=== PATIENT | female | born 1995 | race Caucasian/White ===

== ENCOUNTER 2020-06-01 12:24 | Observation (INO) | payer MEDICAID ==
[~2020-06-01] VITALS: Ht 152.4 cm; Wt 68.0 kg
[2020-06-01] MEDS ORDERED: PREN-55 PO (12:51)
== END 2020-06-01 14:35 | disposition home or self-care (01) ==
LOC: 8 EST LDRP 12:24
PROVIDERS: ADMIT Obstetrics & Gynecology; ATTEND Obstetrics & Gynecology
DX: O62.9 Abnormality of forces of labor, unspecified (principal); Z3A.39 39 weeks gestation of pregnancy
CPT/HCPCS: 99281; G0378

== ENCOUNTER 2020-06-01 20:32 | Inpatient (IN) | payer MEDICAID ==
[~2020-06-01] VITALS: Ht 152.4 cm; Wt 65.8 kg
[~2020-06-01 20:32] MED LIST: PREN-55 PO
[2020-06-01] MEDS ORDERED: DEXT 5%/LR + PITOCIN 20UNITS/L 1,000 ML IV SCH ×2 (21:25→23:01)
[2020-06-01] MEDS ORDERED: LACTATED RINGERS 1,000 ML IV SCH (21:25)
[2020-06-01] MEDS ORDERED: CARBOPROST TROMETHAMINE 250 MCG/ML AMPUL IM PRN (21:30)
[2020-06-01] MEDS ORDERED: LIDOCAINE HCL 1% 20ML VIAL (Pyxis) INJ INFIL SCH (21:30)
[2020-06-01] MEDS ORDERED: METHYLERGONOVINE MALEATE 0.2 MG/ML IM PRN (21:30)
[2020-06-01] MEDS ORDERED: NALOXONE HCL 0.4 MG/ML 1ML VIAL IM PRN (21:30)
[2020-06-01] MEDS ORDERED: BUTORPHANOL TARTRATE 2 MG/ML VIAL IV PRN (21:30)
[2020-06-01 21:45] LABS: BASOPHILS % 0.2 % (0.0-2.0); HEMATOCRIT. 41.1 % (36.0-48.0); LYMPHOCYTES % 9.6 % (20.0-50.0); MEAN CORPUSCULAR HEMOGLOBIN 32.1 pg (28.0-32.0); MEAN CORPUSCULAR VOLUME 93.9 fL (81.0-99.0); MEAN PLATELET VOLUME 7.4 fl (7.4-10.4); MONOCYTES % 2.8 % (2.0-8.0); NEUTROPHILS % 87.4 % (40.0-76.0); PLATELET 274 x1000/uL (130-400); RED BLOOD CELL COUNT 4.37 mill/uL (4.2-5.4); RED CELL DISTRIBUTION WIDTH 13.5 % (11.6-14.6)
[2020-06-01 21:45] LABS: CLARITY URINE CLEAR (CLEAR); COLOR URINE YELLOW (YELLOW); KETONES URINE 2+ (NEGATIVE); LEUKOCYTE ESTERASE URINE TRACE (NEGATIVE); NITRITE URINE NEGATIVE (NEGATIVE); OCCULT BLOOD URINE 1+ (NEGATIVE); PH URINE 5.5 (4.5-8.0); PROTEIN URINE NEGATIVE (NEGATIVE); SPECIFIC GRAVITY URINE 1.012 (1.005-1.030); UROBILINOGEN URINE 0.2 E.U./dL (0.2-1.0)
[2020-06-01 21:53] LABS: INR 0.9; PARTIAL THROMBOPLASTIN TIME 26.9 sec (23.4-31.0); PROTHROMBIN TIME 9.7 sec (9.6-11.0)
[2020-06-01 21:59] LABS: *BARBITURATES SCREEN URINE NEGATIVE (NEGATIVE); *BENZODIAZEPINES SCREEN URINE NEGATIVE (NEGATIVE); *COCAINE SCREEN URINE NEGATIVE (NEGATIVE); METHADONE URINE SCREEN NEGATIVE (NEGATIVE)
[2020-06-01 22:00] LABS: *AMPHETAMINES SCREEN URINE NEGATIVE (NEGATIVE); CANNABINOID URINE SCREEN NEGATIVE (NEGATIVE); PHENCYCLIDINE URINE SCREEN NEGATIVE (NEGATIVE)
[2020-06-01] MEDS ORDERED: PENICILLIN G POTASSIUM 5 MMU in DEXT 5% WATER 100 ML IV SCH (22:00)
[2020-06-01] MEDS ORDERED: ROPIVACAINE HCL/PF EPIDURAL 0 ML EPI ONE (22:02)
[2020-06-01 22:06] LABS: OPIATES URINE SCREEN PRESUMTIVE POSITIVE (NEGATIVE)
[2020-06-01] MEDS ORDERED: FENTANYL CITRATE/PF 50MCG/ML 2ML VIAL ONE (22:21)
[2020-06-01] MEDS ORDERED: BUPIVACAINE HCL/PF 0.25% (2.5MG/ML) 10ML ONE (22:22)
[2020-06-01] MEDS ORDERED: IBUPROFEN 400MG TABLET PO PRN (23:15)
[2020-06-01] MEDS ORDERED: BENZOCAINE/LANOLIN/ALOE VERA SPRAY TOP PRN (23:15)
[2020-06-01] MEDS ORDERED: GLYCERIN/WITCH HAZEL LEAF MEDICATED PAD TOP PRN (23:15)
[2020-06-01] MEDS ORDERED: OXYCODONE HCL/ACETAMINOPHEN 5/325MG TABLET PO PRN (23:15)
[2020-06-01] MEDS ORDERED: IBUPROFEN 800MG TABLET PO PRN (23:15)
[2020-06-01] MEDS ORDERED: BISACODYL 10MG SUPP PR PRN (23:15)
[2020-06-01] MEDS ORDERED: HEMORRHOIDAL SUPP PR PRN (23:15)
[2020-06-01] MEDS ORDERED: DIPHENHYDRAMINE 25MG CAPSULE PO PRN (23:15)
[2020-06-01 23:26] LABS: HEPATITIS B SURFACE ANTIGEN NEGATIVE
[2020-06-02] MEDS ORDERED: PENICILLIN G POTASSIUM 2.5 MMU in DEXTROSE 5% WATER 50 ML IV SCH (02:00)
[2020-06-02 06:04] LABS: BASOPHILS % 0.2 % (0.0-2.0); HEMATOCRIT. 35.3 % (36.0-48.0); LYMPHOCYTES % 13.9 % (20.0-50.0); MEAN CORPUSCULAR HEMOGLOBIN 31.9 pg (28.0-32.0); MEAN CORPUSCULAR VOLUME 93.8 fL (81.0-99.0); MEAN PLATELET VOLUME 7.1 fl (7.4-10.4); MONOCYTES % 9.5 % (2.0-8.0); NEUTROPHILS % 76.4 % (40.0-76.0); PLATELET 243 x1000/uL (130-400); RED BLOOD CELL COUNT 3.76 mill/uL (4.2-5.4); RED CELL DISTRIBUTION WIDTH 13.9 % (11.6-14.6)
[2020-06-02 08:30] VITALS: BP 114/68
[2020-06-02] MEDS: PRENATAL VIT/FE FUMARATE/FA TABLET PO SCH (09:11)
[2020-06-02] MEDS: FERROUS SULFATE 325MG TABLET PO SCH (09:11)
[2020-06-02 16:05] VITALS: BP 102/56
[2020-06-02 22:00] VITALS: BP 95/55
[2020-06-03 05:46] VITALS: BP 103/63
[2020-06-03] MEDS ORDERED: IBUP-2028 PO (07:28)
[2020-06-03] MEDS: FERROUS SULFATE 325MG TABLET PO SCH (07:30)
[2020-06-03 08:00] VITALS: BP 91/45
[2020-06-03] MEDS: PRENATAL VIT/FE FUMARATE/FA TABLET PO SCH (08:03)
[2020-06-07 17:06] LABS: OPIATES CONFIRMATION URINE Positive (.)
== END 2020-06-03 11:30 | disposition home or self-care (01) | DRG 560 ==
LOC: MERGE 20:32 → 8 EST LDRP 20:32 → OBSVTOIN 20:32 → 8EST 06-02 01:31
PROVIDERS: ADMIT Obstetrics & Gynecology; ATTEND Obstetrics & Gynecology
PROC: 10E0XZZ Delivery of Products of Conception, External Approach (ICD-10-PCS; principal; 2020-06-01)
PROC: 0W8NXZZ Division of Female Perineum, External Approach (ICD-10-PCS; 2020-06-01)
DX: O34.211 Maternal care for low transverse scar from previous cesarean delivery (principal); O69.81X0 Labor and delivery complicated by cord around neck, without compression, not applicable or unspecified; O99.324 Drug use complicating childbirth; O99.824 Streptococcus B carrier state complicating childbirth; F11.10 Opioid abuse, uncomplicated; Z37.0 Single live birth; Z3A.39 39 weeks gestation of pregnancy
CPT/HCPCS: 36415; 80305; 80361; 81003; 85025; 86592; 86703; 86762; 86850; 86900; 87340; J0595; J2540; J2590; J2795; J3010; J3490; J7060; J7120